=== PATIENT | female | born 1960 | race Caucasian/White ===

== ENCOUNTER → 2022-01-25 10:50 | Outpatient (BNVA) | payer OTHER, SELFPAY | PROVIDERS: PCP Internal Medicine; Referring Provider Internal Medicine; Visit Provider Physician Assistant Surgical | DX: Z13.89 Encounter for screening for other disorder (principal) ==

== ENCOUNTER → 2022-01-26 10:54 | Outpatient (BNVA) | payer OTHER, SELFPAY | PROVIDERS: PCP Internal Medicine; Referring Provider Internal Medicine; Visit Provider Physician Assistant | DX: Z13.89 Encounter for screening for other disorder (principal) ==

== ENCOUNTER 2022-02-08 08:06 | Outpatient (REF) | payer OTHER, SELFPAY ==
[2022-02-08 08:32] LABS: MANUAL DIFF FLAG NO
[2022-02-08 08:36] LABS: Basophils Percent Auto 0.5 % (0-2); Eosinophils Absolute Auto 0.1 X10*3/uL (0.0-0.4); Eosinophils Percent Auto 1.9 % (0-4); Imm Gran Abs Auto 0.02 X10*3/uL (0.00-0.03); Imm Gran Pct Auto 0.3 % (0.0-0.4); Lymphocytes Absolute Auto 1.7 X10*3/uL (1.2-4.9); Lymphocytes Percent Auto 29.4 % (20-40); Mean Corpuscular HGB Conc 29.7 g/dl (31.0-35.0); Mean Corpuscular Hemoglobin 22.8 pg (27.0-33.0); Mean Corpuscular Volume 76.6 fL (80.0-98.0); Mean Platelet Volume 9.9 fL (9.4-12.3); Monocytes Absolute Auto 0.5 X10*3/uL (0.1-1.2); Monocytes Percent Auto 8.1 % (2-11); Neutrophils Absolute Auto 3.5 x10*3/uL (2.0-8.3); Neutrophils Percent Auto 59.8 % (45-73); Platelet Count 225 X10*3/uL (160-400); Red Blood Count 4.83 X10*6/uL (4.20-5.50); Red Cell Distribution Width 17.3 % (11.0-16.0); White Blood Count 5.9 X10*3/uL (4.8-10.8)
[2022-02-08 08:54] LABS: Alanine Aminotransferase 24 U/L (0-31); Albumin Level 4.2 g/dL (3.5-5.0); Alkaline Phosphatase 121 U/L (39-117); Anion Gap 12 (12-20); Aspartate Amino Transferase 20 U/L (5-31); Bilirubin Total 1.4 mg/dL (0.0-1.0); Blood Urea Nitrogen 14 mg/dL (9-16); Calcium 9.7 mg/dL (8.4-10.2); Carbon Dioxide 28 mmol/L (22-29); Chloride 102 mmol/L (96-108); Cholesterol 119 mg/dL; Estimated Average Glucose 232 mg/dL; Estimated Glomerular Filt Rate > 60; Glucose Random 225 mg/dL (60-115); HDL Cholesterol 39 mg/dL; Hemoglobin A1c % 9.7 %; Iron 46 mcg/dL (30-160); LDL Cholesterol Calculated 66 mg/dl; Percent Iron Saturation 9 % (15-50); Potassium 4.8 mmol/L (3.3-5.1); Sodium 137 mmol/L (135-145); Total Iron Binding Capacity 499 mcg/dL (228-428); Total Protein 7.4 g/dL (6.5-8.0); Triglycerides 70 mg/dL; Unsaturated Iron Binding 453 ug/dL
[2022-02-08 09:16] LABS: Ferritin 11 ng/mL (10-250); Insulin 4 uU/mL (2-29); TSH reflex Free T4 0.37 uIU/mL (0.32-4.0); Vitamin D 25-OH Total 26.4 ng/mL (>30)
[2022-02-08 09:32] LABS: Folate 19.4 ng/mL (> or = 4.0); Vitamin B12 594 pg/mL (200-900)
[2022-02-09 14:15] LABS: Calcium (PTHI) 9.2 mg/dL (8.6-10.4); PTHI 47 pg/mL (16-77)
[2022-02-12 16:15] LABS: Zinc 87 mcg/dL (60-130)
[2022-02-14 10:53] LABS: Vitamin B1 18 nmol/L (8-30)
[2022-02-14 13:26] LABS: Vitamin A 29 mcg/dL (38-98)
== END 2022-02-08 08:07 | disposition home or self-care (01) ==
LOC: HO.LAB 08:06
PROVIDERS: PCP Internal Medicine; Visit Provider Physician Assistant
DX: E66.01 Morbid (severe) obesity due to excess calories (principal); Z98.84 Bariatric surgery status
CPT/HCPCS: 36415; 80053; 80061; 82306; 82607; 82728; 82746; 83036; 83525; 83540; 83970; 84425; 84443; 84590; 84630; 85025; 86140

== ENCOUNTER 2022-02-17 10:05 | Outpatient (REF) | payer OTHER, SELFPAY ==
[2022-02-18 12:48] LABS: H Pylori Breath Test Negative (Negative)
== END 2022-02-17 10:06 | disposition home or self-care (01) ==
LOC: CF 10:05
PROVIDERS: Visit Provider Physician Assistant
DX: E66.01 Morbid (severe) obesity due to excess calories (principal); E11.9 Type 2 diabetes mellitus without complications; Z98.84 Bariatric surgery status
CPT/HCPCS: 36415; 83013

== ENCOUNTER → 2022-03-01 11:00 | Outpatient (BNVA) | payer OTHER, SELFPAY | PROVIDERS: Visit Provider Counselor Mental Health | DX: F43.20 Adjustment disorder, unspecified (principal); E66.01 Morbid (severe) obesity due to excess calories | CPT/HCPCS: 90791 ==

== ENCOUNTER → 2022-03-08 08:10 | Outpatient (BNVA) | payer OTHER, SELFPAY | PROVIDERS: Visit Provider Dietitian, Registered | DX: E66.01 Morbid (severe) obesity due to excess calories (principal) | CPT/HCPCS: 97802 ==

== ENCOUNTER 2022-03-09 09:12 | Outpatient (REF) | payer OTHER, SELFPAY ==
--- NOTE | ~2022-03-09 | FL_ITS ---
EXAMINATION: XR FLUOROSCOPY UPPER GI WITH AIR CLINICAL INFORMATION: Morbid/severe obesity due to excess calories. COMPARISON: None. TECHNIQUE: Routine upper GI air-contrast study was performed in upright and lying position. FINDINGS: Following oral administration of thick barium and effervescent granules, there is normal propagation bolus from the oral cavity through the pharynx and esophagus and into the stomach without any evidence of obstruction, narrowing or stricture. The course, caliber and peristalsis in the esophagus are normal. On placing patient supine, there is a gastric bypass, Juan A-En-Y surgery with a small stomach. There is prompt contrast extension into the ear frontal lobe. The afferent loop is opacified and appears unremarkable. The mucosal pattern of the visualized stomach and the duodenum is normal. FLUOROSCOPY TIME: 2.9 minutes. DOSE AREA PRODUCT: 67.383 uGy-m2 (microgray-meter squared). FL/FL upper GI w air IMPRESSION: Gastric bypass surgery with widely patent GE junction and gastrojejunal anastomosis. There is prompt emptying of barium from a small stomach into the duodenum. No gastroesophageal reflux or hiatal hernia.
--- NOTE | ~2022-03-09 | XR_ITS ---
EXAMINATION: XR CHEST CLINICAL INFORMATION: Morbid obesity. COMPARISON: None TECHNIQUE: 2 views of the chest were obtained. FINDINGS: Limited from patient body habitus. There is no convincing evidence for an acute finding. Some mild linear change at the bases may be atelectasis or chronic change. There is no failure or effusion. The cardiac silhouette is within normal limits. The hilar structures do not appear pathologically enlarged. Kyphosis in the lower thoracic spine and degenerative changes seen with some mild areas of anterior loss of height and some vertebrae in the lower thoracic region. This may be chronic. XR/XR chest 2V IMPRESSION: Limited from patient body habitus. No significant finding. Mild bilateral basilar markings may be chronic versus mild atelectasis. Degenerative change in the thoracic spine with mild kyphosis.
--- NOTE | 2022-03-09 10:32 | ECG_ITS ---
Test Reason : OBESITY Blood Pressure : / mmHG Vent. Rate : 074 BPM Atrial Rate : 074 BPM P-R Int : 174 ms QRS Dur : 094 ms QT Int : 426 ms P-R-T Axes : 065 -26 007 degrees QTc Int : 472 ms Sinus rhythm with occasional Premature ventricular complexes Otherwise normal ECG No previous ECGs available Referred By: Maddi Childress Electronically Signed By:Deepak Gaitan
== END 2022-03-09 09:13 | disposition home or self-care (01) ==
LOC: HO.XRAY 09:12
PROVIDERS: PCP Internal Medicine; Visit Provider Physician Assistant
DX: E66.01 Morbid (severe) obesity due to excess calories (principal); E11.9 Type 2 diabetes mellitus without complications; Z98.84 Bariatric surgery status
CPT/HCPCS: 71046; 74246; 93005

== ENCOUNTER 2022-04-05 07:54 | Outpatient (REF) | payer OTHER, SELFPAY ==
--- NOTE | ~2022-04-05 | US_ITS ---
EXAMINATION: US COMPLETE ABDOMEN WITH LIVER ELASTOGRAPHY CLINICAL INFORMATION: Morbid/severe obesity due to excess calories. COMPARISON: None. TECHNIQUE: Real-time imaging of the abdominal viscera. Noninvasive ultrasound liver fibrosis assessment is performed using [employer] Elast[employer] point quantification shear wave elastography (2D-SWE) with a C5-2 MHz transducer. Multiple elastography samples are obtained. FINDINGS: PANCREAS: The pancreas is partially obscured by overlying gas. The visualized pancreatic head and body are normal in appearance. ABDOMINAL AORTA: The middle, and distal aortic segments are normal in caliber. INFERIOR VENA CAVA: Visualized portions are normal. LIVER: Normal. The liver demonstrates normal size, contour and echogenicity. No focal lesion or intrahepatic biliary duct dilatation. The right lobe measures 19.4 cm in length. The left lobe measures 10.0 cm in length. Portal flow is hepatopedal. Shear wave liver elastography median stiffness is 1.90 m/s (reference: normal median stiffness is 1.3 m/s or less). IQR/median stiffness to assess sampling precision is 0.29 (reference: good quality data set is IQR/median stiffness of 0.15 or less). GALLBLADDER: Normal. The gallbladder is physiologically distended without evidence of stones, sludge, polyps, wall thickening or pericholecystic fluid. COMMON BILE DUCT: Normal in caliber measuring 0.6 cm in diameter. RIGHT KIDNEY: Normal. No hydronephrosis. No renal calculi or focal parenchymal lesions. The kidney measures 10.9 cm in maximum dimension. LEFT KIDNEY: Likely small echogenic vascular calcifications are present. No hydronephrosis. No renal calculi or focal parenchymal lesions. The kidney measures 10.7 cm in maximum dimension. SPLEEN: Normal. The spleen measures 9.5 cm in maximum dimension. FREE FLUID: None. US/US abdomen comp w elastography IMPRESSION: 1. Hepatic steatosis without focal lesion. The rest of the abdominal ultrasound is unremarkable. 2. Liver elastography: Median liver stiffness 1.90 corresponding to cACLD (suggestive). REFERENCE: Society of Radiologists in Ultrasound Liver Stiffness Thresholds (2020): LIVER STIFFNESS THRESHOLDS: *Liver Stiffness equal or less than 1.3 m/s: High probability of being normal. *Liver Stiffness less than 1.7 m/s: In the absence of other known clinical signs, rules out compensated advanced chronic liver disease. *Liver Stiffness 1.7-2.1 m/s: Suggestive of compensated advanced chronic liver disease but need further test for confirmation. *Liver Stiffness over 2.1 m/s: Rules in compensated advanced chronic liver disease. *Liver Stiffness over 2.4 m/s: Suggestive of clinically significant portal hypertension. QUALITY OF DATA SET: *IQR/Median value equal or less than 0.15 implies a quality data set. *IQR/Median value over 0.15 implies a poor quality data set. SIGNIFICANT CHANGE FROM PRIOR EXAM: Significant change if liver stiffness measurement is 10% or greater from prior exam. OTHER CONSIDERATIONS: The stage of liver fibrosis may be overestimated in the setting of acute hepatitis, liver inflammation, elevated liver function tests, hepatic vascular congestion, obstructive cholestasis, non-fasting state, and infiltrative diseases such as amyloidosis and lymphoma. In some patients with NAFLD, the liver stiffness thresholds for compensated advanced chronic liver disease may be lower. In causes other than viral hepatitis and NAFLD, liver stiffness thresholds are not well established.
== END 2022-04-05 07:55 | disposition home or self-care (01) ==
LOC: HO.US 07:54
PROVIDERS: Visit Provider Physician Assistant
DX: Z01.818 Encounter for other preprocedural examination (principal); E11.9 Type 2 diabetes mellitus without complications; E66.01 Morbid (severe) obesity due to excess calories; K21.9 Gastro-esophageal reflux disease without esophagitis
CPT/HCPCS: 76705; 76981

== ENCOUNTER → 2022-04-22 12:31 | Day surgery (SDC) | payer OTHER, SELFPAY | PROVIDERS: PCP Internal Medicine; Visit Provider Surgery | DX: Z98.84 Bariatric surgery status (principal); Z53.8 Procedure and treatment not carried out for other reasons ==